=== PATIENT | female | born 1975 | race African-American/Black ===

== ENCOUNTER 2017-11-30 05:35 | Inpatient (IN) | payer BC ==
[2017-11-27 13:19] LABS: HEMATOCRIT 39.8 % (36-48); HEMOGLOBIN 13.1 g/dL (12.0-16.0); MEAN CORPUSCULAR HEMOGLOBIN 29 pg (27-31); MEAN CORPUSCULAR HGB CONC 33 % (32-36); MEAN CORPUSCULAR VOLUME 87 fL (79.0-98.0); PLATELET COUNT (AUTO) 223 K/uL (130-430); RED CELL DISTRIBUTION WIDTH 14.7 % (9.0-15.0); WHITE BLOOD COUNT (AUTO) 4.7 K/uL (4.8-10.8)
[2017-11-27 13:23] LABS: EOSINOPHILS # (AUTO) 0.1 K/uL (0.0-0.4); EOSINOPHILS % (AUTO) 2.7 % (0.0-4.0); LYMPHOCYTES # (AUTO) 2.3 K/uL (1.0-5.5); LYMPHOCYTES % (AUTO) 49.1 % (20.5-51.5); MONOCYTES # (AUTO) 0.3 K/uL (0.0-1.0); MONOCYTES % (AUTO) 7.3 % (1.7-9.3); NEUTROPHILS # (AUTO) 1.7 K/uL (1.8-7.7); NEUTROPHILS % (AUTO) 39.9 % (40.0-70.0)
[2017-11-27 13:30] LABS: POTASSIUM 4.3 mmol/L (3.5-5.1)
[2017-11-27 13:31] LABS: CALCIUM 8.9 mg/dL (8.4-11.0); CREATININE 0.8 mg/dL (0.55-1.30)
[2017-11-27 13:47] LABS: BILIRUBIN,URINE NEGATIVE (NEGATIVE); BLOOD, URINE NEGATIVE (NEGATIVE); CLARITY/URINE CLEAR (CLEAR); COLOR,URINE YELLOW (YELLOW); GLUCOSE,URINE NEGATIVE (NEGATIVE); KETONES,URINE NEGATIVE (NEGATIVE); LEUKOCYTE ESTERASE ,URINE NEGATIVE (NEGATIVE); NITRITE, URINE NEGATIVE (NEGATIVE); PROTEIN URINE NEGATIVE (NEGATIVE); UROBILINOGEN,URINE 0.2 (0.2-1.0)
[2017-11-27 14:09] LABS: HCG,QUAL RESULT NEGATIVE (NEGATIVE)
[~2017-11-30] VITALS: Ht 160 cm; Wt 64.9 kg
[2017-11-30] MEDS ORDERED: CEFAZOLIN SOD 1 GM/ ISO 50 ML PREMIX IV ONE (07:00)
[2017-11-30] MEDS ORDERED: PROPOFOL 200MG/ 20ML VIAL (DIPRIVAN) IV ONE (07:45)
[2017-11-30] MEDS ORDERED: NEOSTIGMINE METHYLSULFATE 1 MG/ML, 10 ML VIAL IVP ONE (07:45)
[2017-11-30] MEDS ORDERED: VASOPRESSIN 20 UNITS/ML VIAL IV ONE (07:45)
[2017-11-30] MEDS ORDERED: ROCURONIUM BROMIDE 10 MG/ML (ZEMURON) IV ONE (07:45)
[2017-11-30] MEDS ORDERED: LR 1,000 ML IV.SOLN IV ONE (07:45)
[2017-11-30] MEDS ORDERED: SEVOFLURANE 15 MIN GAS INH ONE (07:45)
[2017-11-30] MEDS ORDERED: KETOROLAC TROMETHAMINE 30 MG VIAL IVP ONE (07:45)
[2017-11-30] MEDS ORDERED: NS 100 ML BAG IV ONE (07:45)
[2017-11-30] MEDS ORDERED: GLYCOPYRROLATE 0.2 MG/ML VIAL IJ ONE (07:45)
[2017-11-30] MEDS ORDERED: NS IRRIG SOLN 1000 ML IR ONE (07:45)
[2017-11-30] MEDS ORDERED: ONDANSETRON HCL 4 MG/2 ML VIAL IVP ONE (07:45)
[2017-11-30] MEDS ORDERED: MIDAZOLAM HCL 5 MG/5 ML VIAL IVP ONE (07:45)
[2017-11-30] MEDS ORDERED: fentaNYL CITRATE 250 MCG/5 ML AMP IV ONE (07:45)
[2017-11-30] MEDS ORDERED: LR 1,000 ML IV SCH ×2 (08:36→10:03)
[2017-11-30] MEDS ORDERED: METOCLOPRAMIDE HCL 10 MG/2 ML VIAL IVP PRN (08:45)
[2017-11-30] MEDS ORDERED: HYDROmorphone 2 MG/ML VIAL IVP PRN ×3 (08:45)
[2017-11-30 10:10] VITALS: BP_SYST 111
[2017-11-30] MEDS ORDERED: SIMETHICONE 80 MG TAB.CHEW PO PRN (10:15)
[2017-11-30] MEDS ORDERED: ONDANSETRON HCL 4 MG/2 ML VIAL IVP PRN (10:15)
[2017-11-30] MEDS ORDERED: OXYCODONE/ACETAMINOPHEN 5-325 TABLET PO PRN ×2 (12:00)
[2017-11-30] MEDS: IBUPROFEN 800 MG TABLET PO PRN ×2 (14:43→20:39)
[2017-11-30] MEDS ORDERED: SENNOSIDES/DOCUSATE SODIUM 1 TAB TABLET(SENOKOT-S) PO PRN ×2 (21:00)
[2017-11-30] MEDS ORDERED: TEMAZEPAM 15 MG CAPSULE PO PRN (21:00)
[2017-12-01] MEDS: IBUPROFEN 800 MG TABLET PO PRN ×2 (02:30→08:32)
[2017-12-01 06:24] LABS: HEMATOCRIT 31.3 % (36-48); HEMOGLOBIN 10.5 g/dL (12.0-16.0)
== END 2017-12-01 16:45 | disposition home or self-care (01) | DRG 743 ==
LOC: SMU 05:35 → EDSTATUS 07:30 → SMU 10:17 → SPU 11:34
PROVIDERS: ADMIT Obstetrics & Gynecology; ATTEND Obstetrics & Gynecology
PROC: 0UB90ZZ Excision of Uterus, Open Approach (ICD-10-PCS; principal; 2017-11-30 07:30)
DX: D25.9 Leiomyoma of uterus, unspecified (principal); Z82.61 Family history of arthritis; Z82.49 Family history of ischemic heart disease and other diseases of the circulatory system
CPT/HCPCS: 36415; 80048; 81003; 84703; 85018-TC; 85025; 86886; 86900; 86901; 87081; 88305; J0690; J1885; J2250; J2405; J2704; J2710; J3010; J3490; J7120